=== PATIENT | male | born 1940 | race Caucasian/White ===

== ENCOUNTER 2018-06-30 11:14 | Inpatient (IN) | payer MEDICARE, MEDICAID ==
[2018-06-24 15:29] LABS: BASOPHILS % (AUTO) 0.7 % (0-1); EOSINOPHILS # (AUTO) 0.3 X10'3 (0-0.9); EOSINOPHILS % (AUTO) 4.5 % (0-6); LYMPHOCYTES # (AUTO) 2.1 X10'3 (1.1-4.8); LYMPHOCYTES % (AUTO) 32.2 % (21-51); MEAN CORPUSCULAR HEMOGLOBIN 31.8 PG (27.0-31.0); MEAN CORPUSCULAR VOLUME 96.2 FL (78-98); MEAN PLATELET VOLUME 7.7 FL (7.4-10.4); MONOCYTES # (AUTO) 0.6 X10'3 (0-0.9); MONOCYTES % (AUTO) 9.4 % (2-12); NEUTROPHILS # (AUTO) 3.4 X10'3 (1.8-7.7); NEUTROPHILS % (AUTO) 53.2 % (42-75); PRE OP HEMATOCRIT 39.1 % (42.0-52.0); PRE OP HEMOGLOBIN 12.9 g/dL (14.0-17.9); PRE OP PLATELET COUNT 206 X10'3 (140-440); RED BLOOD COUNT 4.07 X10'6 (4.70-6.10); RED CELL DISTRIBUTION WIDTH 13.8 % (11.5-14.5)
[2018-06-24 15:38] LABS: HEMOGLOBIN A1C 6.4 % (4.5-6.2)
[2018-06-24 15:42] LABS: ALBUMIN 3.4 G/DL (3.4-5.0); ALKALINE PHOSPHATASE 70 IU/L (46-116); BLOOD UREA NITROGEN 13 MG/DL (7-18); BUN/CREATININE RATIO 9.6 (5.4-32.0); CALCIUM 8.5 MG/DL (8.5-10.1); CHLORIDE 104 MMOL/L (99-107); CREATININE 1.36 MG/DL (0.60-1.10); PRE OP ALT 16 U/L (30-65); PRE OP ANION GAP 6 (8-16); PRE OP AST 12 U/L (10-37); PRE OP BILIRUB, TOTAL 0.5 MG/DL (0.0-1.0); PRE OP GLUCOSE 122 MG/DL (70-104); PRE OP POTASSIUM 3.9 MMOL/L (3.4-5.1); PRE OP SODIUM 139 MMOL/L (135-145); TOTAL CARBON DIOXIDE 29.5 MMOL/L (24-32); TOTAL PROTEIN 6.7 G/DL (6.4-8.2); eGFR 51 ML/MIN
[2018-06-30] VITALS (19 sets, daily range): BP systolic 110–149; BP diastolic 54–76
[~2018-06-30] VITALS: Ht 180.3 cm; Wt 108.7 kg
[~2018-06-30 11:14] MED LIST: ATOR20TA66 PO; BUDE10.2 INH; CARV6.253 PO; CYA500T PO; DABI150C PO; ERGO400C PO; FLO0.4C PO; GABA600T2 PO; GLIP10TA11 PO; INSU100V12 SQ; IPRA4AER IH; LISI40TA4 PO; MORP-64 PO; OMEP20TA5 PO; PER10325T PO; SENN8.6T61 PO; acetaminophen 325mg tablet PO ONE; cefazolin/dext.iso 2gm/100 ML IV ONE; famotidine 20mg tablet PO ONE; gabapentin 300mg capsule PO ONE; metoclopramide 5 mg/ml inj IV ONE; oxyCODONE SR 10mg (sust. release) tab PO ONE; ringers solution, lacted 1,000 ML IV SCH; tranexamic acid inj. 1,000 MG in normal saline 100ml IV soln 90 ML IV ONE; vancomycin inj 1,500 MG in normal saline 300ml IV soln IV ONE
[2018-06-30] MEDS ORDERED: ceFAZolin 1000mg inj ONE (12:30)
[2018-06-30] MEDS ORDERED: vancomycin 1,000mg inj ONE (12:30)
[2018-06-30 13:04] LABS: PARTIAL THROMBOPLASTIN TIME 30 SECONDS (22-32); PROTHROMBIN TIME 10.2 SECONDS (9.0-12.0)
[2018-06-30] MEDS ORDERED: carvedilol 6.25mg tablet PO ONE (13:20)
[2018-06-30] MEDS ORDERED: ROPIVAcaine inj 200 MG, epiNEPHrine inj 0.6 MG, morphine 10mg/ml inj. 5 MG in normal sa... IU ONE (13:45)
[2018-06-30] MEDS ORDERED: fentaNYL/PF 50MCG/1 ML 2ML syringe ONE (13:55)
[2018-06-30] MEDS ORDERED: MIDAZolam 5mg/5ml vial ONE (13:55)
[2018-06-30] MEDS ORDERED: morphine /PF 1mg/ml 10ml inj. ONE (13:56)
[2018-06-30] MEDS ORDERED: tetracaine 1% (10mg/ml) pres. free inj. ONE (13:57)
[2018-06-30] MEDS ORDERED: ROPIVAcaine 0.5% (5mg/ml) 30ml vial ONE (14:23)
[2018-06-30] MEDS ORDERED: dexamethasone sod phosphate 4mg/ml inj. ONE (14:24)
[2018-06-30] MEDS ORDERED: ePHEDrine 50MG/ML INJ. ONE ×2 (15:05→15:44)
[2018-06-30] MEDS ORDERED: LIDOcaine 1%/PF 5ML 10 MG/ML VIAL ONE (15:05)
[2018-06-30] MEDS ORDERED: propofol inj 20 ML IV ONE (15:05)
[2018-06-30] MEDS ORDERED: Thrombin (Bovine) 5,000 unit vial TP ONE ×2 (15:35→15:40)
[2018-06-30] MEDS ORDERED: calcium chloride 100 MG/1 ML inj IV ONE (15:44)
[2018-06-30] MEDS ORDERED: acetaminophen 325mg tablet PO PRN (16:30)
[2018-06-30] MEDS ORDERED: magnesium hydroxide 30ml (MOM) UD suspension PO PRN (16:30)
[2018-06-30] MEDS ORDERED: diphenhydrAMINE 25mg capsule PO PRN ×2 (16:30)
[2018-06-30] MEDS ORDERED: bisacodyl 10mg suppository rectal RC PRN (16:30)
[2018-06-30] MEDS ORDERED: HYDROmorphone 1 mg/ml syringe IV PRN (16:30)
[2018-06-30] MEDS ORDERED: oxyCODONE IR 5mg (immed. release) tablet PO PRN (16:30)
[2018-06-30] MEDS ORDERED: ondansetron/PF 4mg/2ml inj IV PRN (16:30)
[2018-06-30] MEDS ORDERED: diphenhydrAMINE 50 mg/ml inj ONE (16:43)
[2018-06-30] MEDS ORDERED: tranexamic acid inj. 1,090 MG in normal saline 100ml IV soln 100 ML IV ONE (19:30)
[2018-06-30] MEDS ORDERED: vancomycin/NS 1 GM ADD-VANTAGE 250 ML IV SCH (20:00)
[2018-06-30] MEDS: sennosides 8.6mg tablet PO SCH ×2 (20:00→21:00)
[2018-06-30] MEDS: carvedilol 6.25mg tablet PO SCH (20:37)
[2018-06-30] MEDS: acetaminophen 325mg tablet PO SCH (20:37)
[2018-06-30] MEDS: gabapentin 300mg capsule PO SCH (20:38)
[2018-06-30] MEDS ORDERED: gabapentin 300mg capsule PO SCH (21:00)
[2018-06-30] MEDS: dabigatran 150mg capsule PO SCH (21:00)
[2018-06-30] MEDS: morphine ER 15mg tablet PO SCH (21:14)
[2018-06-30] MEDS: potassium cl 20mEq in 1/2 NS 1,000 ML IV SCH (21:45)
[2018-06-30] MEDS: albuterol 2.5 MG/3 ML nebule NEB SCH (22:36)
[2018-06-30] MEDS: ipratropium 0.5 MG/2.5ML nebule IH SCH (22:36)
[2018-06-30] MEDS: insulin glargine (Lantus) pen - multi-dose SQ SCH (23:30)
[2018-07-01] VITALS (8 sets, daily range): BP systolic 92–149; BP diastolic 40–76
[2018-07-01] MEDS: potassium cl 20mEq in 1/2 NS 1,000 ML IV SCH ×3 (00:26→16:27)
[2018-07-01] MEDS: ceFAZolin 1GM/D5W- ADD-VANTAGE 50 ML IV SCH ×2 (00:31→07:45)
[2018-07-01] MEDS: acetaminophen 325mg tablet PO SCH ×4 (02:27→21:37)
[2018-07-01] MEDS: oxyCODONE IR 5mg (immed. release) tablet PO PRN ×5 (02:35→21:36)
[2018-07-01] MEDS: albuterol 2.5 MG/3 ML nebule NEB SCH ×3 (03:33→11:39)
[2018-07-01] MEDS: ipratropium 0.5 MG/2.5ML nebule IH SCH ×2 (03:33→08:37)
[2018-07-01 06:41] LABS: BASOPHILS % (AUTO) 0.2 % (0-1); EOSINOPHILS # (AUTO) 0.1 X10'3 (0-0.9); EOSINOPHILS % (AUTO) 1.1 % (0-6); HEMATOCRIT 32.9 % (42.0-52.0); LYMPHOCYTES # (AUTO) 0.6 X10'3 (1.1-4.8); LYMPHOCYTES % (AUTO) 10.6 % (21-51); MEAN CORPUSCULAR HEMOGLOBIN 32.2 PG (27.0-31.0); MEAN CORPUSCULAR HGB CONC 33.5 % (33.0-36.5); MEAN CORPUSCULAR VOLUME 96.2 FL (78-98); MEAN PLATELET VOLUME 8.3 FL (7.4-10.4); MONOCYTES # (AUTO) 0.5 X10'3 (0-0.9); MONOCYTES % (AUTO) 7.9 % (2-12); NEUTROPHILS # (AUTO) 4.9 X10'3 (1.8-7.7); NEUTROPHILS % (AUTO) 80.2 % (42-75); PLATELET COUNT 176 X10'3 (140-440); RED BLOOD COUNT 3.42 X10'6 (4.70-6.10); RED CELL DISTRIBUTION WIDTH 13.6 % (11.5-14.5); WHITE BLOOD COUNT 6.1 X10'3 (4.5-11.0)
[2018-07-01 06:56] LABS: ANION GAP 9 (8-16); CHLORIDE 103 MMOL/L (99-107); POTASSIUM 4.7 MMOL/L (3.5-5.1); SODIUM 138 MMOL/L (135-145); TOTAL CARBON DIOXIDE 25.8 MMOL/L (24-32)
[2018-07-01] MEDS: dabigatran 150mg capsule PO SCH (07:39)
[2018-07-01] MEDS: gabapentin 300mg capsule PO SCH ×3 (07:40→21:37)
[2018-07-01] MEDS: carvedilol 6.25mg tablet PO SCH ×2 (07:41→21:38)
[2018-07-01] MEDS: atorvastatin 20mg tablet PO SCH (07:44)
[2018-07-01] MEDS: tamsulosin 0.4mg capsule PO SCH (07:44)
[2018-07-01] MEDS: lisinopril 5mg tablet PO SCH (07:45)
[2018-07-01] MEDS: sennosides 8.6mg tablet PO SCH ×3 (07:45→21:36)
[2018-07-01] MEDS: cholecalciferol (vitamin D) 400 unit tablet PO SCH (07:45)
[2018-07-01] MEDS: cyanocobalamin 500mcg tablet PO SCH (07:45)
[2018-07-01] MEDS: glipizide 5mg tablet PO SCH (07:45)
[2018-07-01] MEDS: pantoprazole 40mg Tablet.DR PO SCH (07:45)
[2018-07-01] MEDS ORDERED: enoxaparin 40mg/0.4ml syringe SQ SCH (08:00)
[2018-07-01] MEDS: budesonide 0.5mg/2ml UD nebule IH SCH ×2 (08:37→20:00)
[2018-07-01] MEDS: enoxaparin 40mg/0.4ml syringe SUBCUT SCH (10:27)
[2018-07-01] MEDS: HYDROmorphone 1 mg/ml syringe IV PRN ×2 (10:29→17:35)
[2018-07-01] MEDS: ipratropium/albuterol 3ml nebule NEB SCH ×3 (14:17→23:00)
[2018-07-01] MEDS: insulin glargine (Lantus) pen - multi-dose SQ SCH (21:00)
[2018-07-01] MEDS: morphine ER 15mg tablet PO SCH (21:37)
[2018-07-01] MEDS: celeCOXIB 100mg capsule PO SCH (21:37)
[2018-07-02] MEDS: potassium cl 20mEq in 1/2 NS 1,000 ML IV SCH (00:26)
[2018-07-02] MEDS: acetaminophen 325mg tablet PO SCH ×3 (02:00→14:31)
[2018-07-02] MEDS: ipratropium/albuterol 3ml nebule NEB SCH ×7 (03:00→23:17)
[2018-07-02] MEDS: oxyCODONE IR 5mg (immed. release) tablet PO PRN ×3 (05:14→14:24)
[2018-07-02 06:00] VITALS: BP 106/41
[2018-07-02 07:32] LABS: BASOPHILS % (AUTO) 0.6 % (0-1); EOSINOPHILS # (AUTO) 0.1 X10'3 (0-0.9); EOSINOPHILS % (AUTO) 1.2 % (0-6); HEMATOCRIT 28.6 % (42.0-52.0); HEMOGLOBIN 9.6 g/dl (14.0-17.9); LYMPHOCYTES # (AUTO) 1.3 X10'3 (1.1-4.8); LYMPHOCYTES % (AUTO) 19.3 % (21-51); MEAN CORPUSCULAR HEMOGLOBIN 31.8 PG (27.0-31.0); MEAN CORPUSCULAR HGB CONC 33.6 % (33.0-36.5); MEAN CORPUSCULAR VOLUME 94.8 FL (78-98); MONOCYTES % (AUTO) 14.7 % (2-12); NEUTROPHILS # (AUTO) 4.4 X10'3 (1.8-7.7); NEUTROPHILS % (AUTO) 64.2 % (42-75); PLATELET COUNT 156 X10'3 (140-440); RED BLOOD COUNT 3.01 X10'6 (4.70-6.10); RED CELL DISTRIBUTION WIDTH 13.9 % (11.5-14.5); WHITE BLOOD COUNT 6.9 X10'3 (4.5-11.0)
[2018-07-02] MEDS: carvedilol 6.25mg tablet PO SCH ×2 (07:39→21:01)
[2018-07-02] MEDS: pantoprazole 40mg Tablet.DR PO SCH (07:42)
[2018-07-02] MEDS: glipizide 5mg tablet PO SCH (07:43)
[2018-07-02] MEDS: celeCOXIB 100mg capsule PO SCH ×2 (07:43→21:02)
[2018-07-02] MEDS: cyanocobalamin 500mcg tablet PO SCH (07:43)
[2018-07-02] MEDS: lisinopril 5mg tablet PO SCH (07:43)
[2018-07-02] MEDS: tamsulosin 0.4mg capsule PO SCH (07:43)
[2018-07-02] MEDS: gabapentin 300mg capsule PO SCH ×3 (07:44→21:01)
[2018-07-02] MEDS: atorvastatin 20mg tablet PO SCH (07:44)
[2018-07-02] MEDS: sennosides 8.6mg tablet PO SCH ×3 (07:44→21:00)
[2018-07-02] MEDS: enoxaparin 40mg/0.4ml syringe SUBCUT SCH (07:45)
[2018-07-02] MEDS: cholecalciferol (vitamin D) 400 unit tablet PO SCH (07:47)
[2018-07-02] MEDS: budesonide 0.5mg/2ml UD nebule IH SCH ×2 (10:02→23:17)
[2018-07-02] MEDS: HYDROmorphone 1 mg/ml syringe IV PRN (12:04)
[2018-07-02] MEDS ORDERED: acetaminophen 325mg tablet PO PRN (16:30)
[2018-07-02 18:00] VITALS: BP 131/59
[2018-07-02] MEDS: morphine ER 15mg tablet PO SCH (21:01)
[2018-07-02] MEDS: insulin glargine (Lantus) pen - multi-dose SQ SCH (21:13)
[2018-07-02 22:00] VITALS: BP 131/65
[2018-07-03] MEDS: oxyCODONE IR 5mg (immed. release) tablet PO PRN ×3 (00:27→12:17)
[2018-07-03] MEDS: ipratropium/albuterol 3ml nebule NEB SCH ×3 (03:00→11:00)
[2018-07-03 05:20] LABS: BASOPHILS % (AUTO) 0.3 % (0-1); EOSINOPHILS # (AUTO) 0.1 X10'3 (0-0.9); EOSINOPHILS % (AUTO) 1.5 % (0-6); HEMOGLOBIN 8.8 g/dl (14.0-17.9); LYMPHOCYTES # (AUTO) 1.4 X10'3 (1.1-4.8); LYMPHOCYTES % (AUTO) 21.3 % (21-51); MEAN CORPUSCULAR HGB CONC 33.6 % (33.0-36.5); MEAN CORPUSCULAR VOLUME 95.4 FL (78-98); MEAN PLATELET VOLUME 8.4 FL (7.4-10.4); MONOCYTES # (AUTO) 0.6 X10'3 (0-0.9); MONOCYTES % (AUTO) 10.1 % (2-12); NEUTROPHILS # (AUTO) 4.3 X10'3 (1.8-7.7); NEUTROPHILS % (AUTO) 66.8 % (42-75); PLATELET COUNT 159 X10'3 (140-440); RED BLOOD COUNT 2.73 X10'6 (4.70-6.10); RED CELL DISTRIBUTION WIDTH 13.6 % (11.5-14.5); WHITE BLOOD COUNT 6.4 X10'3 (4.5-11.0)
[2018-07-03] MEDS: budesonide 0.5mg/2ml UD nebule IH SCH (07:30)
[2018-07-03] MEDS: gabapentin 300mg capsule PO SCH (07:35)
[2018-07-03] MEDS: celeCOXIB 100mg capsule PO SCH (07:35)
[2018-07-03] MEDS: carvedilol 6.25mg tablet PO SCH (07:36)
[2018-07-03] MEDS: atorvastatin 20mg tablet PO SCH (07:36)
[2018-07-03] MEDS: lisinopril 5mg tablet PO SCH (07:36)
[2018-07-03] MEDS: tamsulosin 0.4mg capsule PO SCH (07:36)
[2018-07-03] MEDS: glipizide 5mg tablet PO SCH (07:36)
[2018-07-03] MEDS: cholecalciferol (vitamin D) 400 unit tablet PO SCH (07:36)
[2018-07-03] MEDS: pantoprazole 40mg Tablet.DR PO SCH (07:36)
[2018-07-03] MEDS: enoxaparin 40mg/0.4ml syringe SUBCUT SCH (07:36)
[2018-07-03] MEDS: cyanocobalamin 500mcg tablet PO SCH (07:36)
[2018-07-03] MEDS: sennosides 8.6mg tablet PO SCH ×2 (07:36→07:42)
[2018-07-03 10:00] VITALS: BP 106/46
== END 2018-07-03 14:05 | disposition home or self-care (01) | DRG 470 ==
LOC: PAS IN 11:14 → EDSTATUS 13:15 → ORTHO 4S 18:50
PROVIDERS: ADMIT Orthopaedic Surgery; ATTEND Orthopaedic Surgery
PROC: 8E0Y0CZ Robotic Assisted Procedure of Lower Extremity, Open Approach (ICD-10-PCS; 2018-06-30)
PROC: 3E0T3BZ Introduction of Anesthetic Agent into Peripheral Nerves and Plexi, Percutaneous Approach (ICD-10-PCS; 2018-06-30)
PROC: 0SRD0J9 Replacement of Left Knee Joint with Synthetic Substitute, Cemented, Open Approach (ICD-10-PCS; principal; 2018-06-30 13:51)
DX: M17.12 Unilateral primary osteoarthritis, left knee (principal); D62 Acute posthemorrhagic anemia; N40.0 Benign prostatic hyperplasia without lower urinary tract symptoms; K21.9 Gastro-esophageal reflux disease without esophagitis; J44.9 Chronic obstructive pulmonary disease, unspecified; I25.10 Atherosclerotic heart disease of native coronary artery without angina pectoris; I10 Essential (primary) hypertension; E11.9 Type 2 diabetes mellitus without complications; G89.29 Other chronic pain
CPT/HCPCS: 36415; 71046; 80051; 80053; 82948; 83036; 85025; 85610; 85730; 87070; 93005; 94640; 94760; 97110; 97116; 97162; 97530; A6455; A7000; C1713; C1758; C1776; G0378; J0171; J0690; J1100; J1170; J1200; J1650; J1815; J2001; J2250; J2270; J2274; J2704; J2765; J2795; J3010; J3370; J7030; J7120; J7626

== ENCOUNTER 2022-04-08 10:42 | Day surgery (SDC) | payer MEDICARE, MEDICAID ==
[2022-04-03 11:26] LABS: BASOPHILS % (AUTO) 0.8 % (0-1); EOSINOPHILS # (AUTO) 0.1 X10'3 (0-0.9); EOSINOPHILS % (AUTO) 1.7 % (0-6); HEMATOCRIT 40.6 % (42.0-52.0); HEMOGLOBIN 13.9 g/dl (14.0-17.9); LYMPHOCYTES % (AUTO) 31.3 % (21-51); MEAN CORPUSCULAR HEMOGLOBIN 31.9 PG (27.0-31.0); MEAN CORPUSCULAR HGB CONC 34.3 g/dL (33.0-36.5); MEAN CORPUSCULAR VOLUME 93.1 FL (78-98); MEAN PLATELET VOLUME 7.9 FL (7.4-10.4); MONOCYTES # (AUTO) 0.6 X10'3 (0-0.9); MONOCYTES % (AUTO) 8.9 % (2-12); NEUTROPHILS # (AUTO) 3.6 X10'3 (1.8-7.7); NEUTROPHILS % (AUTO) 57.3 % (42-75); PLATELET COUNT 163 X10'3 (140-440); RED BLOOD COUNT 4.36 X10'6 (4.70-6.10); RED CELL DISTRIBUTION WIDTH 13.3 % (11.5-14.5); WHITE BLOOD COUNT 6.2 X10'3 (4.5-11.0)
[2022-04-03 11:31] LABS: APTT 60 SECONDS (22-32)
[2022-04-03 11:36] LABS: ALBUMIN 3.6 G/DL (3.4-5.0); ANION GAP 8 (8-16); BLOOD UREA NITROGEN 23 MG/DL (7-18); CHLORIDE 102 MMOL/L (99-107); CREATININE 1.44 MG/DL (0.60-1.10); GLUCOSE 107 MG/DL (70-104); POTASSIUM 4.7 MMOL/L (3.5-5.1); SODIUM 137 MMOL/L (135-145); TOTAL CARBON DIOXIDE 26.7 MMOL/L (24-32); eGFR 47 ML/MIN
[2022-04-08] VITALS (13 sets, daily range): BP systolic 94–151; BP diastolic 37–108
[~2022-04-08] VITALS: Ht 177.8 cm; Wt 112.1 kg
[~2022-04-08 10:42] MED LIST changes: -CYA500T PO; +CYAN500T71 PO; -DABI150C PO; +GABA600T13 PO; -GABA600T2 PO; +LISI40TA13 PO; -LISI40TA4 PO; -MORP-64 PO; +MORP-92 PO; +OMEP20TA43 PO; -OMEP20TA5 PO; -acetaminophen 325mg tablet PO ONE; -cefazolin/dext.iso 2gm/100 ML IV ONE; -famotidine 20mg tablet PO ONE; -gabapentin 300mg capsule PO ONE; -metoclopramide 5 mg/ml inj IV ONE; -oxyCODONE SR 10mg (sust. release) tab PO ONE; -ringers solution, lacted 1,000 ML IV SCH; -tranexamic acid inj. 1,000 MG in normal saline 100ml IV soln 90 ML IV ONE; -vancomycin inj 1,500 MG in normal saline 300ml IV soln IV ONE
[2022-04-08] MEDS ORDERED: normal saline 1000ml 1,000 ML IV SCH (11:10)
[2022-04-08] MEDS ORDERED: MIDAZolam 1mg/ml 10ml vial IV ONE (11:10)
[2022-04-08] MEDS ORDERED: fentaNYL/PF 50MCG/1 ML 2ML syringe IV ONE (11:10)
[2022-04-08] MEDS ORDERED: GABA800T11 PO (11:26)
[2022-04-08] MEDS ORDERED: BUDE10.22 INH (11:26)
[2022-04-08] MEDS ORDERED: IPRA3AMP9 IH (11:26)
[2022-04-08] MEDS ORDERED: DABI150C PO (11:34)
[2022-04-08] MEDS ORDERED: SPIR25TA5 PO (11:34)
[2022-04-08] MEDS ORDERED: AMIO200T61 PO (11:34)
[2022-04-08] MEDS ORDERED: OXYC10TA47 PO (11:34)
[2022-04-08 11:43] LABS: CHOL/HDL RATIO 2.6 (0.00-4.99); CHOLESTEROL 113 MG/DL (0-200); HDL CHOLESTEROL 44 MG/DL (35-60); LDL CHOLESTEROL 60 MG/DL (50-100); TRIGLYCERIDES 80 MG/DL (20-135)
== END 2022-04-08 14:50 | disposition home or self-care (01) ==
LOC: SSTAY O 10:42
PROVIDERS: ATTEND Student in an Organized Health Care Education/Training Program
DX: I48.91 Unspecified atrial fibrillation (principal); E11.22 Type 2 diabetes mellitus with diabetic chronic kidney disease; I25.2 Old myocardial infarction; I13.0 Hypertensive heart and chronic kidney disease with heart failure and stage 1 through stage 4 chronic kidney disease, or unspecified chronic kidney disease; I50.9 Heart failure, unspecified; I25.10 Atherosclerotic heart disease of native coronary artery without angina pectoris; I73.9 Peripheral vascular disease, unspecified; I42.9 Cardiomyopathy, unspecified; Z91.041 Radiographic dye allergy status; N18.30 Chronic kidney disease, stage 3 unspecified; E78.5 Hyperlipidemia, unspecified; Z79.899 Other long term (current) drug therapy; Z95.5 Presence of coronary angioplasty implant and graft; Z98.890 Other specified postprocedural states
CPT/HCPCS: 36415; 80048; 80061; 82948; 85025; 85610; 85730; 92960; 93005; 94760; 94799; J7030; A4620